=== PATIENT | female | born 1980 | race Caucasian/White ===

== ENCOUNTER 2016-11-09 08:32 | Emergency (ER) | payer BC, MEDICAID ==
[2016-11-09] MEDS ORDERED: IBUPROFEN 800 MG TABLET PO ONE (09:08)
--- NOTE | 2016-11-09 09:09 | ER Document Report ---
HPI - HPI Patient complains to provider of: cough, fever, exposure to flu Onset: Other - 5 days Onset/Duration: Persistent Severity: Moderate Pain Level: 3 Context: Patient presents to the emergency department with complaints of cough body aches fever sore throat since Saturday. She reports her sons were diagnosed with the flu on Saturday. She reports fever 2 days ago of 102 and diarrhea yesterday. Today she still has a productive cough with green sputum. Denies vomiting. Associated Symptoms: Productive cough, Fever Exacerbated by: Denies Relieved by: Denies Similar symptoms previously: No Recently seen / treated by doctor: No - ROS ROS below otherwise negative: Yes - CONSTITUTIONAL Constitutional: REPORTS: Fever - EENT EENT: REPORTS: Sore Throat - NEURO Neurology: REPORTS: Headache - REPRODUCTIVE Reproductive: DENIES: : - DERM Skin Color: Normal Past Medical History - General Information source: Patient Last Menstrual Period: 10/19/16 - Social History Smoking Status: Never Smoker Cigarette use (# per day): No Chew tobacco use (# tins/day): No Frequency of alcohol use: Occasional Drug Abuse: None Occupation: [employer] Lives with: Family Family History: Reviewed & Not Pertinent Patient has suicidal ideation: No Patient has homicidal ideation: No - Medical History Medical History: Negative Renal/ Medical History: Denies: Hx Peritoneal Dialysis Past Surgical History: Reports: Hx Abdominal Surgery - 2 c-sections, Hx Cholecystectomy, Hx Tonsillectomy - Immunizations Hx Diphtheria, Pertussis, Tetanus Vaccination: Yes Vertical Provider Document - CONSTITUTIONAL Agree With Documented VS: Yes Exam Limitations: No Limitations General Appearance: WD/WN, No Apparent Distress - nontoxic looking - INFECTION CONTROL TRAVEL OUTSIDE OF THE [place] IN LAST 30 DAYS: No - HEENT HEENT: Atraumatic, Normal ENT Exam, Normocephalic. negative: Pharyngeal Exudate , Pharyngeal Erythema, Tympanic Membrane Red - NECK Neck: Normal Inspection, Supple. negative: Lymphadenopathy-Left, Lymphadenopathy-Right - RESPIRATORY Respiratory: Breath Sounds Normal, No Respiratory Distress - occasional cough noted O2 Sat by Pulse Oximetry: 100 - CARDIOVASCULAR Cardiovascular: Regular Rate, Regular Rhythm - GI/ABDOMEN Gastrointestinal: Abdomen Soft, Abdomen Non-Tender - BACK Back: Normal Inspection - MUSCULOSKELETAL/EXTREMETIES Musculoskeletal/Extremeties: HUBER LARKIN - NEURO Level of Consciousness: Awake, Alert, Appropriate Motor/Sensory: No Motor Deficit - DERM Integumentary: Warm, Dry, No Rash Course - Re-evaluation Re-evalutation: 11/09/16 Patient instructed on negative chest xray. Patient instructed on [place] for cough body aches and headache. She was also instructed to follow up with primary care provider for recheck within 1 week. - Vital Signs Vital signs: Temp Pulse Resp BP Pulse Ox 98.1 F 92 20 119/75 100 11/09/16 08:37 11/09/16 08:37 11/09/16 08:37 11/09/16 08:37 11/09/16 08:37 - Diagnostic Test Radiology reviewed: Image reviewed, Reports reviewed - IMPRESSION: NO SIGNIFICANT RADIOGRAPHIC FINDING IN THE CHEST. Discharge - Discharge Clinical Impression: Exposure to the flu, Cough Condition: Stable Disposition: HOME, SELF-CARE Instructions: Acetaminophen, Oral Narcotic Medication ([facility]) Additional Instructions: *You have been evaluated for flu like symptoms today, cough, fever *Increase fluid intake as discussed *Take medication as prescribed *Monitor your temperature, take Tylenol as indicated *Follow up with a primary care provider within one week for recheck *Return to ED for worsening condition, changes, needs Prescriptions: Hydrocodone/Acetaminophen [[place] 5-325 Tablet] 1 each PO QID #15 tablet Forms: Return to Work Referrals: CARINE ASCENCIO NP [Primary Care Provider] - Follow up in 1 week
[2016-11-09 10:39] VITALS: BP 110/67
== END 2016-11-09 10:40 | disposition home or self-care (01) ==
LOC: ER 08:32
DX: R05 Cough (principal); Z20.828 Contact with and (suspected) exposure to other viral communicable diseases; R50.9 Fever, unspecified; J02.9 Acute pharyngitis, unspecified; R51 Headache
CPT/HCPCS: 99283; 71020; J3490

== ENCOUNTER 2017-11-01 12:34 | Emergency (ER) | payer BC, MEDICAID ==
[2017-11-01] MEDS ORDERED: IBUPROFEN 800 MG TABLET PO ONE (13:56)
--- NOTE | 2017-11-01 13:57 | ER Document Report ---
HPI - HPI Patient complains to provider of: Upper respiratory symptoms Onset: Other Onset/Duration: Persistent - 4 days Quality of pain: Achy Pain Level: 3 Context: Patient presents with a four-day history of cough, congestion chills and sore throat. Patient denies any fever. Associated Symptoms: Chills, Productive cough, Rhinnorhea, Sore throat. denies : Chest pain, Diarrhea, Fever, Shortness of breath Exacerbated by: Denies Relieved by: Denies Similar symptoms previously: Yes Recently seen / treated by doctor: No - ROS ROS below otherwise negative: Yes Systems Reviewed and Negative: Yes All other systems reviewed and negative - CONSTITUTIONAL Constitutional: REPORTS: Chills. DENIES: Fever - EENT EENT: REPORTS: Sore Throat, Nasal Drainage-Clear, Congestion - CARDIOVASCULAR Cardiovascular: DENIES: Chest pain - RESPIRATORY Respiratory: REPORTS: Coughing. DENIES: Trouble Breathing - GASTROINTESTINAL Gastrointestinal: DENIES: Patient vomiting - REPRODUCTIVE Reproductive: DENIES: : - MUSCULOSKELETAL Musculoskeletal: DENIES: Back Pain, Neck Pain - DERM Skin Color: Normal Skin Problems: None Past Medical History - General Information source: Patient - Social History Smoking Status: Never Smoker Frequency of alcohol use: None Drug Abuse: None Occupation: [employer] Lives with: Family Family History: Reviewed & Not Pertinent Patient has suicidal ideation: No Patient has homicidal ideation: No - Medical History Medical History: Negative Renal/ Medical History: Denies: Hx Peritoneal Dialysis Past Surgical History: Reports: Hx Abdominal Surgery - 2 c-sections, Hx Cholecystectomy, Hx Tonsillectomy - Immunizations Hx Diphtheria, Pertussis, Tetanus Vaccination: Yes Vertical Provider Document - CONSTITUTIONAL Agree With Documented VS: Yes Exam Limitations: No Limitations General Appearance: WD/WN, No Apparent Distress - INFECTION CONTROL TRAVEL OUTSIDE OF THE [place] IN LAST 30 DAYS: No - HEENT HEENT: Atraumatic, Normocephalic, Pharyngeal Tenderness, Pharyngeal Erythema. negative: Pharyngeal Exudate, Tympanic Membrane Red, Tympanic Membrane Bulging Notes: Clear rhinorrhea - NECK Neck: Normal Inspection, Supple. negative: Lymphadenopathy-Left, Lymphadenopathy-Right - RESPIRATORY Respiratory: No Respiratory Distress. negative: Chest Non-Tender, Rhonchi, Wheezing O2 Sat by Pulse Oximetry: 100 Notes: Dry cough - CARDIOVASCULAR Cardiovascular: Regular Rate, Regular Rhythm, No Murmur - BACK Back: Normal Inspection - MUSCULOSKELETAL/EXTREMETIES Musculoskeletal/Extremeties: MAEW - NEURO Level of Consciousness: Awake, Alert, Appropriate Motor/Sensory: No Motor Deficit - DERM Integumentary: Warm, Dry, No Rash Course - Re-evaluation Re-evalutation: 11/01/17 Patient's respirations unlabored, no increased respiratory effort. Nontoxic in appearance. Discussed plan of care with patient, patient is requesting that she be provided with a note for her employer. - Vital Signs Vital signs: Temp Pulse Resp BP Pulse Ox 97.8 F 65 22 H 124/74 100 11/01/17 12:39 11/01/17 12:39 11/01/17 12:39 11/01/17 12:39 11/01/17 12:39 - Diagnostic Test Radiology reviewed: Image reviewed, Reports reviewed Discharge - Discharge Clinical Impression: Sore throat, Nasal congestion Upper respiratory infection Qualifiers: URI type: unspecified URI Qualified Code(s): J06.9 - Acute upper respiratory infection, unspecified Condition: Stable Disposition: HOME, SELF-CARE Instructions: Acetaminophen, Upper Respiratory Illness ([facility]) Additional Instructions: Return immediately for any new or worsening symptoms Followup with your primary care provider, call tomorrow to make a followup appointment Throat culture is pending, we will call if you need any different treatment Prescriptions: Hydrocodone Bit/Homatropine [Hycodan Syrup 5-1.5 mg/ 5 ml Ud Cup] 5 ml PO ASDIR PRN #60 ml PRN Reason: Forms: Return to Work Referrals: LUCIA GRACE MD [ACTIVE STAFF] - Follow up tomorrow
--- NOTE | 2017-11-01 14:22 | RADIOLOGY REPORT (SQ) ---
EXAM DESCRIPTION: CHEST PA/LAT COMPLETED DATE/TIME: 11/01/2017 2:15 pm REASON FOR STUDY: cough COMPARISON: 11/09/2016 EXAM PARAMETERS: NUMBER OF VIEWS: two views TECHNIQUE: Digital Frontal and Lateral radiographic views of the chest acquired. RADIATION DOSE: NA LIMITATIONS: none FINDINGS: LUNGS AND PLEURA: No opacities, masses or pneumothorax. No pleural effusion. MEDIASTINUM AND HILAR STRUCTURES: No masses or contour abnormalities. HEART AND VASCULAR STRUCTURES: Heart normal size. No evidence for failure. BONES: No acute findings. HARDWARE: None in the chest. OTHER: No other significant finding. IMPRESSION: NO SIGNIFICANT RADIOGRAPHIC FINDING IN THE CHEST. TECHNICAL DOCUMENTATION: JOB ID: [id number] [employer]- All Rights Reserved
[2017-11-01 15:08] VITALS: BP 113/74
== END 2017-11-01 15:08 | disposition home or self-care (01) ==
LOC: ER 12:34
DX: J06.9 Acute upper respiratory infection, unspecified (principal); J02.9 Acute pharyngitis, unspecified; R09.81 Nasal congestion; R05 Cough; R09.89 Other specified symptoms and signs involving the circulatory and respiratory systems
CPT/HCPCS: 71046; 87070; 87880; 99283

== ENCOUNTER 2019-11-16 18:40 | Emergency (ER) | payer BC ==
[2019-11-16] MEDS ORDERED: DIPHENHYDRAMINE HCL 50 MG/ML VIAL IV ONE (19:26)
[2019-11-16] MEDS ORDERED: METOCLOPRAMIDE HCL INJ/PF 10 MG/2 ML SDV IV ONE (19:26)
[2019-11-16] MEDS ORDERED: ONDANSETRON 4 MG TAB.RAPDIS PO ONE (19:27)
--- NOTE | 2019-11-16 19:29 | ER Document Report ---
ED Medical Screen (RME) - General Chief Complaint: Headache, Worst Ever Stated Complaint: HEADACHE Time Seen by Provider: 11/16/19 19:19 Notes: Patient is a 39-year-old female who presents emergency department with a chief complaint of headache. Patient reports over the past 6 months she has had more frequent headaches. Patient reports she is having a frontal headache currently. Patient reports today she had an acute onset of headache around 4 PM. Patient reports typically ibuprofen and rest seems to help but that ibuprofen did not help. Patient reports this is the worst headache that she is ever had. Denies trauma. Denies neck pain or fever. Patient reports light sensitivity, lightheadedness. Patient also reports she has been battling a productive cough with yellow sputum for the past 4 months. Patient reports facial pressure. TRAVEL OUTSIDE OF THE [place] IN LAST 30 DAYS: No - Related Data Allergies/Adverse Reactions: azithromycin [From Zithromax] Allergy (Severe, Verified 11/16/19 19:19) severe abdominal pain sulfamethoxazole [From Bactrim] Allergy (Severe, Verified 11/16/19 19:19) severe abdominal pain trimethoprim [From Bactrim] Allergy (Severe, Verified 11/16/19 19:19) severe abdominal pain Past Medical History - Social History Chew tobacco use (# tins/day): No Frequency of alcohol use: Rare Drug Abuse: None Renal/ Medical History: Denies: Hx Peritoneal Dialysis Past Surgical History: Reports: Hx Abdominal Surgery - 2 c-sections, Hx Cholecystectomy, Hx Tonsillectomy - Immunizations Hx Diphtheria, Pertussis, Tetanus Vaccination: Yes Physical Exam - Vital signs Vitals: Temp Pulse Resp BP Pulse Ox 97.7 F 74 18 132/84 H 97 11/16/19 18:48 11/16/19 18:48 11/16/19 18:48 11/16/19 18:48 11/16/19 18:48 Course - Re-evaluation Re-evalutation: 11/16/19 19:28 We will obtain a CT of the head as the patient reports is the worst headache she is ever experienced. Patient appears uncomfortable in triage. Will give ODT Zofran to start to help with her nausea. Patient does not have any significant sinus tenderness with palpation. I have greeted and performed a rapid initial assessment of this patient. A comprehensive ED assessment and evaluation of the patient, analysis of test results and completion of the medical decision making process will be conducted by additional ED providers. - Vital Signs Vital signs: Temp Pulse Resp BP Pulse Ox 97.7 F 74 18 132/84 H 97 11/16/19 18:48 11/16/19 18:48 11/16/19 18:48 11/16/19 18:48 11/16/19 18:48
--- NOTE | 2019-11-16 19:57 | RADIOLOGY REPORT (SQ) ---
EXAM DESCRIPTION: CT HEAD WITHOUT COMPLETED DATE/TIME: 11/16/2019 7:38 pm REASON FOR STUDY: "worst headache ever" COMPARISON: None. TECHNIQUE: Axial images acquired through the brain without intravenous contrast. Images reviewed wi th bone, brain and subdural windows. Additional sagittal and coronal reconstructions were generated. Images stored on PACS. All CT scanners at this facility use dose modulation, iterative reconstruction, and/or weight based d osing when appropriate to reduce radiation dose to as low as reasonably achievable (ALARA). [facility]: Dose Right [facility]: CareDose [facility]: Dose Right [facility]: Teradose 4D [facility]: [employer] RADIATION DOSE: CT Rad equipment meets quality standard of care and radiation dose reduction techniq ues were employed. CTDIvol: 53.2 mGy. DLP: 937 mGy-cm. mGy. LIMITATIONS: None. FINDINGS: VENTRICLES: Normal size and contour. CEREBRUM: No masses. No hemorrhage. No midline shift. No evidence for acute infarction. Normal gra y/white matter differentiation. No areas of low density in the white matter. CEREBELLUM: No masses. No hemorrhage. No alteration of density. No evidence for acute infarction. EXTRAAXIAL SPACES: No fluid collections. No masses. ORBITS AND GLOBE: No intra- or extraconal masses. Normal contour of globe without masses. CALVARIUM: No fracture. PARANASAL SINUSES: No fluid or mucosal thickening. SOFT TISSUES: No mass or hematoma. OTHER: No other significant finding. IMPRESSION: NORMAL BRAIN CT WITHOUT CONTRAST. EVIDENCE OF ACUTE STROKE: NO. COMMENT: Quality ID # [id number]: Final reports with documentation of one or more dose reduction techniques (e.g., Automated exposure control, adjustment of the mA and/or kV according to patient size, use of iterative reconstruction technique) TECHNICAL DOCUMENTATION: JOB ID: [id number] 2010 [employer]- All Rights Reserved Reading location - IP/workstation name: [email or web address]
[2019-11-16] MEDS ORDERED: KETOROLAC TROMETHAMINE INJ/PF 30 MG/1 ML SDV IV ONE (20:04)
[2019-11-16] MEDS ORDERED: DIPHENHYDRAMINE HCL 50 MG/ML VIAL ONE (21:34)
[2019-11-16] MEDS ORDERED: METOCLOPRAMIDE HCL INJ/PF 10 MG/2 ML SDV ONE (21:35)
--- NOTE | 2019-11-16 22:42 | ER Document Report ---
ED General - General Chief Complaint: Headache, Worst Ever Stated Complaint: HEADACHE Time Seen by Provider: 11/16/19 19:19 Primary Care Provider: LUCIA GRACE MD [Primary Care Provider] - Follow up as needed Notes: 39-year-old female comes in complaining of a frontal headache that she states is the worst of her life. Denies any injury, denies any numbness, tingling, weakness. Admits photophobia and nausea. Denies neck pain or vomiting. States that it is in the exact same distribution as her usual headaches that she is never been this bad before. Denies any blood thinners. Denies any family history of aneurysm. Patient also complains of a "respiratory thing for 4 months." Patient states it started in July, happens every year, her primary care physician in August gave her antibiotics and it did not make any change. Patient complains of a lingering productive cough since then. Admits a history of seasonal allergies as well as a history of intermittent heartburn/reflux. Uses Tums [id number] intermittently. Denies any shortness of breath associated with this. Denies any chest pain associated with this. Has not yet had a chest x-ray to evaluate this. TRAVEL OUTSIDE OF THE [place] IN LAST 30 DAYS: No - Related Data Allergies/Adverse Reactions: azithromycin [From Zithromax] Allergy (Severe, Verified 11/16/19 19:19) severe abdominal pain sulfamethoxazole [From Bactrim] Allergy (Severe, Verified 11/16/19 19:19) severe abdominal pain trimethoprim [From Bactrim] Allergy (Severe, Verified 11/16/19 19:19) severe abdominal pain Past Medical History - General Information source: Patient - Social History Smoking Status: Never Smoker Chew tobacco use (# tins/day): No Frequency of alcohol use: Rare Drug Abuse: None Family History: Reviewed & Not Pertinent Patient has suicidal ideation: No Patient has homicidal ideation: No Renal/ Medical History: Denies: Hx Peritoneal Dialysis Past Surgical History: Reports: Hx Abdominal Surgery - 2 c-sections, Hx Cholecystectomy, Hx Tonsillectomy - Immunizations Hx Diphtheria, Pertussis, Tetanus Vaccination: Yes Review of Systems - Review of Systems Constitutional: No symptoms reported EENT: See HPI - Photophobia and headache. Respiratory: See HPI, Cough, Sputum. denies: Hurts to breathe, Short of breath Neurological/Psychological: See HPI -: Yes All other systems reviewed and negative Physical Exam - Vital signs Vitals: Temp Pulse Resp BP Pulse Ox 97.7 F 74 18 132/84 H 97 11/16/19 18:48 11/16/19 18:48 11/16/19 18:48 11/16/19 18:48 11/16/19 18:48 Interpretation: Normal - Notes Notes: GENERAL: Alert, interacts well. No acute distress. HEAD: Normocephalic, atraumatic EYES: Pupils equal, round and reactive to light, extraocular movements intact. ENT: Oral mucosa moist, tongue midline. Nares patent, no nasal septal hematoma, TMs intact. Small amount of postnasal drip. NECK: Full range of motion, supple, trachea midline. LUNGS: Clear to auscultation bilaterally, no wheezes, rales or rhonchi, no respiratory distress. HEART: Regular rate and rhythm, no murmurs, gallops, rubs. ABDOMEN: Soft, nontender, nondistended, bowel sounds present in all 4 quadrants. EXTREMITIES: Moves all 4 extremities spontaneously, no edema, radial and dorsalis pedis pulses 2/4 bilaterally. No cyanosis. NEUROLOGICAL: Alert and oriented x3, normal speech, cranial nerves II through XII grossly intact, biceps and patellar DTRs 2+ bilaterally. Finger-nose testing intact. PSYCH: Normal mood, normal affect. SKIN: Warm, Dry, normal turgor, no rashes or lesions noted. Course - Re-evaluation Re-evalutation: 11/16/19 22:44 CT scan of the head is negative. This is not different than her regular headache aside from the intensity. Very low risk for subarachnoid hemorrhage as it is not different in character only different intensity from her regular headaches. Patient has already been given Toradol, Compazine and Benadryl, headache is down to a 1 out of 10. Discussed with patient the possibility of getting a chest x-ray tonight to investigate her cough that is been going on for 4 months versus following up with primary care physician as an outpatient. At this point patient would rather follow-up as an outpatient. I am agreeable to waiting on this as the patient is not feeling short of breath, is not hypoxic, is not tachypneic and does not febrile. She does not have any chest pain associated with this. I did suggest that the patient try taking a daily anti- allergy pill such as Claritin or Zyrtec as well as a daily antacid such as Pepcid or Zantac. Patient is agreeable to this plan. - Vital Signs Vital signs: Temp Pulse Resp BP Pulse Ox 97.7 F 74 18 132/84 H 97 11/16/19 18:48 11/16/19 18:48 11/16/19 18:48 11/16/19 18:48 11/16/19 18:48 Discharge - Discharge Clinical Impression: Frontal headache, Chronic cough Condition: Stable Disposition: HOME, SELF-CARE Additional Instructions: Headache The physician does not feel that the headache you are experiencing has a serious underlying cause. Most headaches are due to emotional stress, with resultant muscle tension (tension headache). Occasionally, headaches are secondary to changes in the blood vessels of the scalp (vascular headache and migraine headache). Sometimes, a headache is the first symptom of another developing illness, such as a viral infection. You have no evidence of stroke, bleeding, meningitis, or other serious cause of your headache. The treatment of headaches varies with the severity and cause of the pain. Not all headaches need pain shots. In fact, there is evidence that using narcotics for headaches may make them worse in the long run. The physician will determine the therapy that's in your best interest. If you develop a fever, if the headache is different from any you've previously experienced, or if the headache progressively worsens, then call your physician at once or go to the emergency room. For your cough I would suggest you see your primary care physician to have a chest x-ray performed. You should return to the emergency department should you develop a fever, become short of breath, develop any chest pain or develop blood in your sputum. This cough may be coming from seasonal allergies causing postnasal drip or it may be coming from acid reflux. Please consider taking a daily antacid such as Claritin 10 mg [id number] once a day. Please also consider taking a daily antacid such as Pepcid 20 mg twice a day. These are both available [id number]. Trial these for 2 weeks. If it does not improve your cough you may stop them. Referrals: LUCIA GRACE MD [Primary Care Provider] - Follow up as needed
[2019-11-16 23:22] VITALS: BP 104/73
== END 2019-11-16 23:22 | disposition home or self-care (01) ==
LOC: ER 18:40
DX: R51 Headache (principal); H53.149 Visual discomfort, unspecified; R11.0 Nausea; R05 Cough; Z88.1 Allergy status to other antibiotic agents
CPT/HCPCS: 70450; J1200; S0119; J1885; J2765; 96374; 96375; 99284